=== PATIENT | male | born 1980 | race Two or more races ===

== ENCOUNTER 2019-02-20 12:25 | Emergency (ER) | payer MEDICAID ==
[~2019-02-20] VITALS: Ht 175.3 cm; Wt 102.1 kg
[2019-02-20] MEDS ORDERED: LORazepam 0.5 MG TAB PO ONE (12:45)
[2019-02-20 13:42] VITALS: BP 114/67
== END 2019-02-20 13:44 | disposition home or self-care (01) ==
LOC: EDUNIT# 12:25 → EDBD 12:25 → ER 12:34
DX: F41.9 Anxiety disorder, unspecified (principal); R42 Dizziness and giddiness; R55 Syncope and collapse